=== PATIENT | female | born 1955 | race Caucasian/White ===

== ENCOUNTER 2023-05-03 19:47 | Emergency (ER) | payer OTHER, SELFPAY ==
[2023-05-03 19:57] VITALS: BP 124/80; PULSE 93; RESP 20; TEMP 36.8; O2SAT 94; BMI 25.8
--- NOTE | 2023-05-03 20:46 | ED.URI1 ---
HPI - URI/Sore Throat General Chief Complaint: Upper Respiratory Infection Stated Complaint: UPPER RESPIRATORY INFECTION Time Seen by Provider: 05/03/23 20:36 Source: patient Limitations: no limitations History of Present Illness HPI Narrative: This 57-year-old female, smoker presents for evaluation of 3 days of nasal congestion and dry cough. 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 She had a mild headache but denies any headache at this time.Since then she has had increasing nasal congestion and cannot breathe out of her nose. She denies any fever. She denies any chest pain or shortness of breath. She has an occasional dry cough. She has been using tdxg-csc-styyell cough medication but did not know what to take for her nasal congestion. She denies a history of seasonal ALLERGIES. She has no abdominal pain. She denies any nausea vomiting or diarrhea. She has been vaccinated against Covid 19. She denies any sick contacts. MD elicited complaint: Reports rhinorrhea and nasal congestion Onset (ago): day(s) (3) Severity: mild Description of mucous: Reports clear Able to tolerate fluids by mouth: Yes Exacerbating factors: Reports nothing Relieving factors: Reports nothing and cough suppressant Associated symptoms: Reports denies other symptoms Related Data Home Medications Medication Instructions Recorded Confirmed No Known Home Medications 05/03/23 05/03/23 Allergies Allergy/AdvReac Type Severity Reaction Status Date / Time No Known Drug Allergies Allergy Verified 05/03/23 20:02 Review of Systems ROS Status of ROS 10 or more systems reviewed and unremarkable except as noted in history and below [facility] Social History Smoking status: Current every day smoker Exam Constitutional Vital Signs - 24 hr 05/03/23 19:57 Temperature 98.3 F Pulse Rate [Monitor] 93 H Respiratory Rate 20 Blood Pressure [Right Arm] 124/80 H Pulse Oximetry 94 L Oxygen Delivery Method Room Air Documenting provider has reviewed patient's vital signs: yes Common normals: no apparent distress (Well-appearing female without up with nasal congestion, no distre) General appearance: cooperative [facility] Common normals: normocephalic, head/scalp atraumatic, hearing grossly normal bilaterally, external ears normal, EACs normal, TMs normal bilaterally, external nose normal (Clear rhinorrhea), nasal mucous membranes and turbinates normal (boggy nasal turbinates) and moist oral mucous membranes Head and scalp: normal to inspection and normocephalic Face and sinus: normal facial exam Nose: external nose normal External ear: external ears normal and external ear abnormal Tympanic membrane: TMs normal bilaterally Mouth: oral and palatal mucosa normal Eye Common normals: PERRL, EOMs intact bilaterally, conjunctivae normal and no scleral icterus Respiratory Common normals: normal respiratory effort, no retractions, no use of accessory muscles and clear to auscultation bilaterally Effort & inspection: able to speak in complete sentences Cardio Common normals: no JVD, regular rate, regular rhythm, S1 normal heart sound, S2 normal heart sound, no gallops, no clicks, no murmurs and no rub GI Common normals: Normal to inspection, nondistended, normoactive bowel sounds present Auscultation: normoactive bowel sounds Palpation: soft Extremity Common normals: normal to inspection, full ROM, no clubbing, cyanosis or edema and no calf tenderness Neuro Common normals: oriented x3 Psych Common normals: mental status grossly normal Course Vital Signs Vital signs: Vital Signs Temperature 98.3 F 05/03/23 19:57 Pulse Rate 93 H 05/03/23 19:57 Respiratory Rate 20 05/03/23 19:57 Blood Pressure 124/80 H 05/03/23 19:57 Pulse Oximetry 94 L 05/03/23 19:57 Oxygen Delivery Method Room Air 05/03/23 19:57 Temperature 98.3 F 05/03/23 19:57 Pulse Rate 93 H 05/03/23 19:57 Respiratory Rate 20 05/03/23 19:57 Blood Pressure 124/80 H 05/03/23 19:57 Pulse Oximetry 94 L 05/03/23 19:57 Oxygen Delivery Method Room Air 05/03/23 19:57 MDM - URI/Sore Throat MDM Narrative Medical decision making narrative: This 67-year-old female who is a smoker presents for evaluation of 3 days of nasal congestion. She is frustrated because she cannot breathe out of her nose. She has clear rhinorrhea, audible nasal congestion, her lungs are clear, she has no fevers. She denies any sick contacts. She is vaccinated against Covid 19. She has been using [id number]-fte-rhhlwzc cough medication. I signed her that her symptoms are likely viral in nature. She likely has a viral upper respiratory tract infection above-knee amputation cold. She understands but states that she cannot stand not being able to breathe out of her nose. She was medicated emergency department with 60 mg of IM Kenalog and given nasal spray/decongestant to use for the next several days to help clear her nasal passages. She does not have a family physician or be referred outpatient family medicine. Differential Diagnosis Differential diagnosis: Likely upper respiratory infection, sinusitis and viral infection Discharge Plan Discharge Chief Complaint: Upper Respiratory Infection Clinical Impression: Upper respiratory infection, Viral infection Patient Disposition: Home, Self-Care Time of Disposition Decision: 20:53 Condition: Good Prescriptions / Home Meds: No Action No Known Home Medications Print Language: Slovak Instructions: Upper Respiratory Infection (ED), Viral Syndrome (ED) Additional Instructions: Use the nasal spray every 2-3 hours as needed for nasal congestion. Do not use it longer than 3 days as there is a tendency to become reliant on this. Drink plenty of fluids. Continue using her qxyk-ils-wivrjus cough medications. Follow up as needed with outpatient family medicine Stand Alone Forms: Portal Instructions Referrals: Physician,Non-Staff, MD [Primary Care Provider] - 1 week
[2023-05-03] MEDS: TRIAMCINOLONE ACETONIDE 40 MG/ML VIAL IM (21:24)
== END 2023-05-03 21:28 | disposition home or self-care (01) ==
PROVIDERS: Emergency Provider Emergency Medicine
DX: J06.9 Acute upper respiratory infection, unspecified (principal); B34.9 Viral infection, unspecified; F17.210 Nicotine dependence, cigarettes, uncomplicated
CPT/HCPCS: 96372; 99284

== ENCOUNTER 2025-04-13 15:36 | Emergency (ER) | payer OTHER, SELFPAY ==
[2025-04-13 15:41] VITALS: BP 110/74; PULSE 97; TEMP 36.6; O2SAT 96; BMI 23.0
--- NOTE | 2025-04-13 15:48 | ED.EXTPRO1 ---
HPI - Extremity Problem General Chief complaint: Extremity Problem, Nontraumatic Stated complaint: LE PAIN Time Seen by Provider: 04/13/25 15:47 Source: patient Mode of arrival: walk-in Limitations: no limitations History of Present Illness HPI Narrative: The patient is coming to the ER with a left leg area of pain that she noticed almost 3 days ago, she mentioned that she was just going to sleep when she put her legs on top of each other and she noted that there is a spot that is hurting, recently had shaving to her lower extremities and she did not notice anything then, the patient have history of varicose veins in her lower extremity as well No fever no chills no other concerns Related Data Previous Rx's ?Medication ?Instructions ?Recorded amoxicillin 875 mg-potassium 1 tab PO Q12H #14 tabs 04/13/25 clavulanate 125 mg tablet Allergies Allergy/AdvReac Type Severity Reaction Status Date / Time No Known Drug Allergies Allergy Verified 04/13/25 15:41 Review of Systems ROS Status of ROS 10 or more systems reviewed and unremarkable except as noted in history and below PFSH PFSH Social History Smoking status: Current every day smoker Little interest or pleasure in doing things: not at all Feeling down, depressed, or hopeless: not at all Exam Narrative Exam Narrative: Nurses notes and vital signs reviewed and patient is not hypoxic. General: Well-appearing and in no apparent distress. Lower extremity examination: The patient have an area of almost 1 cm by half centimeter oval in shape that is indurated and not red just on top of one of the varicose veins and it is not showing any fluctuation, the patient does not have any surrounding redness no surrounding induration although there is a small area of induration at the spot itself, The rest of the examination of the lower extremity is normal and the patient have no vascular injury detected The area of pain is just at the anterior of the left leg just at the proximal one quarter of the tibia, the patient have no other lesions Constitutional Vital Signs, click to edit/add: Last Vital Signs Temp 98 F 04/13/25 15:41 Pulse 97 H 04/13/25 15:41 Resp 16 04/13/25 15:41 BP 110/74 04/13/25 15:41 Pulse Ox 96 04/13/25 15:41 O2 Del Method Room Air 04/13/25 15:41 Course Vital Signs Vital signs: Vital Signs Temperature 98 F 04/13/25 15:41 Pulse Rate 97 H 04/13/25 15:41 Respiratory Rate 16 04/13/25 15:41 Blood Pressure 110/74 04/13/25 15:41 Pulse Oximetry 96 04/13/25 15:41 Oxygen Delivery Method Room Air 04/13/25 15:41 Temperature 98 F 04/13/25 15:41 Pulse Rate 97 H 04/13/25 15:41 Respiratory Rate 16 04/13/25 15:41 Blood Pressure 110/74 04/13/25 15:41 Pulse Oximetry 96 04/13/25 15:41 Oxygen Delivery Method Room Air 04/13/25 15:41 MDM - Extremity (Nontraumatic) MDM Narrative Medical decision making narrative: The patient initially was worried about possible DVT and I did explain to her that this is not where the DVT would develop and her presentation mostly secondary to superficial phlebitis versus a small ongoing cellulitis The plan right now is monitoring for any expansion of the area and if surrounding redness any surrounding increasing pain and she also to avoid shaving for the next few weeks, the patient also was provided with Augmentin to cover for possible folliculitis in addition to cool compression to help with the phlebitis The patient is to follow up with primary care physician in next 2-3 days or to return to the emergency department should any of the signs or symptoms worsen or new symptoms develop. The patient agrees with the following Diagnosis and Treatment plan and the patient will be discharged home. Discharge Plan Discharge Chief Complaint: Extremity Problem, Nontraumatic Clinical Impression: Phlebitis, Cellulitis Patient Disposition: Home, Self-Care Time of Disposition Decision: 15:53 Condition: Good Prescriptions / Home Meds: New amoxicillin-pot clavulanate 875-125 mg tablet 1 tab PO Q12H Qty: 14 0RF Print Language: Vincentian Instructions: Phlebitis (ED) Referrals: Physician,Non-Staff, MD [Primary Care Provider] - 1 week Discharge Date/Time: 04/13/25 16:01
== END 2025-04-13 16:01 | disposition home or self-care (01) ==
PROVIDERS: Emergency Provider Emergency Medicine
DX: L03.116 Cellulitis of left lower limb (principal); I80.3 Phlebitis and thrombophlebitis of lower extremities, unspecified; F17.200 Nicotine dependence, unspecified, uncomplicated
CPT/HCPCS: 99283